=== PATIENT | female | born 1970 | race Caucasian/White ===

== ENCOUNTER 2023-02-16 15:39 | Emergency (ER) | payer MEDICAID ==
[2023-02-16] VITALS (20 sets, daily range): BP systolic 80–134; BP diastolic 47–81
== END 2023-02-16 20:18 | disposition home or self-care (01) ==
LOC: ED 15:39
DX: R56.9 Unspecified convulsions (principal); S00.81XA Abrasion of other part of head, initial encounter; F17.200 Nicotine dependence, unspecified, uncomplicated; Y92.000 Kitchen of unspecified non-institutional (private) residence as the place of occurrence of the external cause; T42.76XA Underdosing of unspecified antiepileptic and sedative-hypnotic drugs, initial encounter; W18.30XA Fall on same level, unspecified, initial encounter; Z91.128 Patient's intentional underdosing of medication regimen for other reason

== ENCOUNTER 2023-03-15 16:32 | Emergency (ER) | payer OTHER ==
[~2023-03-15] VITALS: Ht 165.1 cm; Wt 104.0 kg
[2023-03-15 16:36] VITALS: BP 137/79
[2023-03-15 16:57] LABS: BASO% 0.5 % (0-3); HEMATOCRIT 38.1 % (37.0-47.0); HEMOGLOBIN 12.2 g/dl (12.0-16.0); IMMATURE GRANULOCYTES 0.2 % (0.0-5.0); LYMPH% 42.8 % (15-41); MEAN CELL VOLUME 85.6 fL CALC (80.0-100.0); MEAN CORPUSCULAR HGB 27.4 pG CALC (26.0-32.0); MONO% 8.4 % (2-13); NEUT# 3.02 thou/uL (2.00-7.15); NEUT% 48.1 % (42-76); RED BLOOD COUNT 4.45 mill/uL (4.20-5.60); RED CELL DISTRI WIDTH 14.4 % (11.5-15.5)
[2023-03-15 17:12] VITALS: BP 111/66
[2023-03-15 17:13] LABS: ALKALINE PHOSPHATASE 80 u/l (38-126); ANION GAP 8 (6-22 (CALC)); BILIRUBIN, TOTAL 0.2 mg/dL (0.02-1.3); BUN 8 mg/dL (7-17); BUN/CREATININE RATIO 8 (12-20 (CALC)); CARBON DIOXIDE 24 mmol/l (22-30); CHLORIDE 110 mmol/l (95-108); CREATININE 0.9 mg/dL (0.5-1.0); GFR FOR AFR.AMER. > 60 ML/MIN (>=60 (CALC)); GFR OTHER RACES > 60 ML/MIN (>=60 (CALC)); POTASSIUM 3.4 mmol/l (3.5-5.1); SGOT/AST 21 u/l (14-36); SODIUM 139 mmol/l (137-146); TOTAL PROTEIN 7.2 g/dL (6.3-8.2)
[2023-03-15 17:30] VITALS: BP 116/67
[2023-03-15 18:00] VITALS: BP 123/59
[2023-03-15 18:31] VITALS: BP 113/61
[2023-03-15 19:03] VITALS: BP 113/61
== END 2023-03-15 19:04 | disposition home or self-care (01) ==
LOC: ED 16:32
PROVIDERS: Family Medicine
DX: R56.9 Unspecified convulsions (principal); F17.200 Nicotine dependence, unspecified, uncomplicated; T42.0X6A Underdosing of hydantoin derivatives, initial encounter; Z91.128 Patient's intentional underdosing of medication regimen for other reason

== ENCOUNTER 2023-05-18 19:01 | Emergency (ER) | payer OTHER ==
[~2023-05-18] VITALS: Ht 172.7 cm; Wt 100.0 kg
[2023-05-18 19:18] VITALS: BP 130/78
[2023-05-18 19:31] VITALS: BP 90/39
[2023-05-18] MEDS ORDERED: CYMBALTA60 MG PO (19:32)
[2023-05-18] MEDS ORDERED: PHENYTOIN EX100 MG PO (19:32)
[2023-05-18] MEDS ORDERED: CLONIDINE0.2 MG PO (19:32)
[2023-05-18] MEDS ORDERED: OMEPRAZOLE DR40 MG PO (19:33)
[2023-05-18] MEDS ORDERED: MELATONIN3 M1 PO (19:33)
[2023-05-18] MEDS ORDERED: BENADRYL 25MG C25 MG PO (19:33)
[2023-05-18 19:45] VITALS: BP 109/69
[2023-05-18 20:01] VITALS: BP 108/62
[2023-05-18 20:16] VITALS: BP 108/62
== END 2023-05-18 20:24 | disposition home or self-care (01) ==
LOC: ED 19:01
DX: S61.211A Laceration without foreign body of left index finger without damage to nail, initial encounter (principal); W26.0XXA Contact with knife, initial encounter; Y93.G1 Activity, food preparation and clean up